=== PATIENT | female | born 1960 ===

== ENCOUNTER 2017-01-30 20:23 | Emergency (ER) | payer MEDICAID ==
[2017-01-30 20:54] VITALS: BP 144/77; PULSE 80; RESP 18; TEMP 98; O2SAT 99
[2017-01-30 21:44] LABS: SQUAMOUS EPITHIAL < 1 /hpf (0-5); URINE BILIRUBIN NEGATIVE (NEGATIVE); URINE BLOOD NEGATIVE (NEGATIVE); URINE CLARITY CLEAR (Clear); URINE COLOR STRAW (YELLOW); URINE GLUCOSE (UA) NEG (Normal); URINE LEUKOCYTE ESTERASE NEG Leu/uL (Negative); URINE NITRATE NEGATIVE (NEGATIVE); URINE PROTEIN NEGATIVE (NEGATIVE); URINE UROBILINOGEN 0.2-1.0 mg/dL (0.2-1.0)
--- NOTE | 2017-01-30 21:47 | ED PDOC ---
HPI: Chest Pain Time Seen by Provider: 01/30/17 20:50 Chief Complaint (Nursing): Chest Pain Chief Complaint (Provider): Chest Pain History Per: Patient History/Exam Limitations: no limitations Onset/Duration Of Symptoms: Intermittent Episodes (3 weeks) Current Symptoms Are (Timing): Still Present Severity: Moderate Quality: Pressure Additional Complaint(s): Celina Luo is a 56 y/o female, with a past medical history of borderline hypertension, presenting to the ER on 01/30/2017 with intermittent episodes of chest pain for three weeks. Pain, which is described as "pressure", is localized to the right side of her chest. Patient reports she takes 5 mg of Amlodipine for her symptoms only when she experiences them, not as a daily maintenance medication. She also notes feeling anxious and depressed because her former spouse , causing her to harbor feelings of guilt. Past Medical History Reviewed: Historical Data, Nursing Documentation, Vital Signs Vital Signs: Last Vital Signs Temp 98 F 01/30/17 20:49 Pulse 80 01/30/17 20:49 Resp 18 01/30/17 20:49 BP 144/77 01/30/17 20:49 Pulse Ox 99 01/30/17 22:40 - Medical History PMH: HTN - Surgical History Surgical History: No Surg Hx - Family History Family History: States: Unknown Family Hx - Social History Current smoker - smoking cessation education provided: No Alcohol: None Drugs: Denies - Allergies Allergies/Adverse Reactions: Allergies Allergy/AdvReac Type Severity Reaction Status Date / Time codeine Allergy RASH Verified 01/30/17 20:49 Review of Systems ROS Statement: Except As Marked, All Systems Reviewed And Found Negative Constitutional: Negative for: Fever Cardiovascular: Positive for: Chest Pain Respiratory: Negative for: Shortness of Breath Musculoskeletal: Negative for: Back Pain Psych: Positive for: Anxiety, Depression Physical Exam - Reviewed Nursing Documentation Reviewed: Yes Vital Signs Reviewed: Yes - Physical Exam Appears: Positive for: Non-toxic, No Acute Distress Head Exam: Positive for: ATRAUMATIC, NORMOCEPHALIC Skin: Positive for: Normal Color. Negative for: Rash Eye Exam: Positive for: Normal appearance, EOMI, PERRL Neck: Positive for: Normal, Painless ROM, Supple Cardiovascular/Chest: Positive for: Regular Rate, Rhythm. Negative for: Murmur Respiratory: Positive for: Normal Breath Sounds. Negative for: Respiratory Distress Gastrointestinal/Abdominal: Positive for: Normal Exam, Soft. Negative for: Tenderness Extremity: Positive for: Normal ROM. Negative for: Deformity, Swelling Neurologic/Psych: Positive for: Alert, Oriented. Negative for: Motor/Sensory Deficits - Laboratory Results Result Diagrams: 01/30/17 21:33 01/30/17 21:33 - ECG O2 Sat by Pulse Oximetry: 99 Medical Decision Making Medical Decision Makin:50 Initial Impression- 56 y/o female with chest pain in setting of questionable hypertension Initial Plan- * EKG * CMP * Troponin I * Urine Dip * CBC w/ differential * PTT * PT * Urinalysis 22:34 Labs reviewed, shows no signs of clinically significant abnormalities. Pt requires no further treatment in the ED and is stable for routine discharge. Pt was referred to the clinic for a follow-up, which she will schedule within 2-3 days. Pt was also given guidance to take Amlodipine daily. Clinical Impression- Anxiety & Atypical Chest Pain Documented by Danita Watkins, acting as a scribe for Andre Jay MD. All medical record entries made by the Scribe were at my direction and personally dictated by me. I have reviewed the chart and agree that the record accurately reflects my personal performance of the history, physical exam, medical decision making, and the department course for this patient. I have also personally directed, reviewed, and agree with the discharge instructions and disposition. Disposition - Clinical Impression Clinical Impression: Atypical chest pain, Anxiety - Disposition Referrals: [facility] [Outside] [facility] [Outside] Disposition Time: 22:00 Condition: STABLE Instructions: Noncardiac Chest Pain (ED), Anxiety (ED) Print Language: CONGOLESE
[2017-01-30 21:48] LABS: ALB/GLOB RATIO 1.3 (1.0-2.1); ALBUMIN 4.5 g/dL (3.5-5.0); ALT/SGPT 49 U/L (9-52); AST/SGOT 34 U/L (14-36); BLOOD UREA NITROGEN 17 mg/dl (7-17); CALCIUM 9.6 mg/dL (8.4-10.2); GFR AFRICAN-AMERICAN > 60; GFR NON-AFRICAN AMERICAN > 60
[2017-01-30 21:58] LABS: BASO % 0.4 % (0.0-2.0); EOS % 0.7 % (0.0-4.0); HEMOGLOBIN 12.4 g/dL (12.0-16.0); LYMPH # 2.2 K/uL (1.0-4.3); LYMPH % 29.4 % (20.0-40.0); MEAN CELL VOLUME 90.9 fl (81.0-99.0); MEAN CORPUSCULAR HEMOGLOBIN 29.9 pg (27.0-31.0); MEAN CORPUSCULAR HGB CONC 32.9 g/dL (33.0-37.0); MEAN PLATELET VOLUME 8.9 fl (7.2-11.7); MONO # 0.5 K/uL (0.0-0.8); MONO % 6.3 % (0.0-10.0); NEUT # 4.7 K/uL (1.8-7.0); NEUT % 63.2 % (50.0-75.0); NRBC % 0.1 % (0.0-0.0); RBC 4.14 Mil/uL (3.80-5.20); RED CELL DISTRIBUTION WIDTH 13.3 % (11.5-14.5); WHITE BLOOD COUNT 7.5 K/uL (4.8-10.8)
[2017-01-30 22:04] LABS: PARTIAL THROMBOPLASTIN TIME 31.5 Seconds (25.6-37.1); PROTHROMBIN TIME 10.7 Seconds (9.8-13.1)
--- NOTE | 2017-01-31 12:35 | CARD ---
APPROVED REPORT EKG Measurement Heart [id number] <Conclusion> Normal sinus rhythm T wave abnormality, consider artifacts Abnormal ECG
== END 2017-01-30 22:48 | disposition home or self-care (01) ==
LOC: H.ER 20:23
DX: R07.89 Other chest pain (principal); F41.9 Anxiety disorder, unspecified; I10 Essential (primary) hypertension